=== PATIENT | male | born 1945 | race Caucasian/White ===

== ENCOUNTER 2023-06-09 06:26 | Day surgery (SDC) | payer OTHER ==
[~2023-06-09] VITALS: Ht 177.8 cm; Wt 100.0 kg
[2023-06-09] VITALS (11 sets, daily range): BP systolic 115–149; BP diastolic 71–96
[~2023-06-09 06:26] MED LIST: ATOR80 PO; Aspir 8181 MG PO; FERSU300 PO; FINA5 PO; GLIP5ER PO; HYDROCHLOROTH12.5 MG PO; LOSARTAN POTAS100 MG PO; METF500 PO; TADALAFIL5 M1 PO; TAMS.4ER PO
[2023-06-09] MEDS ORDERED: DOCU100 PO (07:19)
[2023-06-09] MEDS ORDERED: MULVITA PO (07:20)
[2023-06-09] MEDS ORDERED: CALCIUM CIT 311 EAC7 PO (07:20)
--- NOTE | 2023-06-09 09:05 | NUR ---
ASSUMED CARE OF PT POST PROCEDURE. PT AWAKE AND ORIENTED, NO SEDATION GIVEN; DENIES CHEST PAIN POST PROCEDURE. MONITOR SR WITH IVCD 80'S, B/P 141/79, SPO2 96% RA, AFEBRILE. R RADIAL SITE NO SWELLING/HEMATOMA, TR BAND IN PLACE; RUE POSITIVE PLEUTH POST TR BAND PLACEMENT.
--- NOTE | 2023-06-09 11:00 | NUR ---
PT R RADIAL TR BAND FULLY DEFLATED OF AIR. NO BLEEDING OR HEMATOMA NOTED. VSS. NADN. CALL LIGHT WITHIN REACH.
--- NOTE | 2023-06-09 11:00 | NUR ---
TR BAND FULLY DEFLATED, NO SWELLING/HEMATOMA, TR BAND REMAINS IN PLACE.
--- NOTE | 2023-06-09 11:20 | NUR ---
R RADIAL SITE UNCHANGED POST TR BAND DEFLATION.
--- NOTE | 2023-06-09 11:50 | NUR ---
PT AMB TO BATHROOM, GAIT STEADY; SITE UNCHANGED WITH ACTIVITY.
--- NOTE | 2023-06-09 12:00 | NUR ---
PT DRESSED SELF WITHOUT ISSUE, SITE UNCHANGED. TR BAND REMOVED, CLOTH DOT AND WRIST IMMOBILIZER PLACED; IV REMOVED-CANNULA INTACT.
--- NOTE | 2023-06-09 12:10 | NUR ---
PT RECEIVED DISCHARGE INSTRUCTIONS, MED LIST AND AFTER CARE INSTRUCTIONS, VERBALIZED GOOD UNDERSTANDING. PT LEFT FACILITY VIA W/C, CONDITION STABLE. PT DID NOT RECEIVE SEDATION, AND OK'D BY DR MEYERS TO DRIVE SELF HOME POST PROCEDURE.
== END 2023-06-09 12:10 | disposition home or self-care (01) ==
LOC: MHTC 06:26
DX: Z01.810 Encounter for preprocedural cardiovascular examination (principal); I35.0 Nonrheumatic aortic (valve) stenosis; I25.10 Atherosclerotic heart disease of native coronary artery without angina pectoris; I25.82 Chronic total occlusion of coronary artery; I44.7 Left bundle-branch block, unspecified; D50.9 Iron deficiency anemia, unspecified; G47.33 Obstructive sleep apnea (adult) (pediatric); I10 Essential (primary) hypertension; E78.5 Hyperlipidemia, unspecified; E11.9 Type 2 diabetes mellitus without complications; E66.3 Overweight; Z68.30 Body mass index [BMI] 30.0-30.9, adult; Z87.891 Personal history of nicotine dependence; Z79.82 Long term (current) use of aspirin; Z79.84 Long term (current) use of oral hypoglycemic drugs; Z79.899 Other long term (current) drug therapy
CPT/HCPCS: 76937; 93454; A9270; C1769; C1887; C1894; J1644; J7030; J7040; J7050; Q9967